=== PATIENT | male | born 1985 | race African-American/Black ===

== ENCOUNTER 2022-08-12 22:16 | Emergency (ER) | payer MEDICARE, MEDICAID ==
[~2022-08-12] VITALS: Ht 182.9 cm; Wt 100.0 kg
[2022-08-12 22:20] VITALS: BP 181/105
[2022-08-13] MEDS ORDERED: ACET-2708 MT (00:43)
== END 2022-08-13 03:00 | disposition home or self-care (01) ==
LOC: ER 22:33
DX: M79.672 Pain in left foot (principal); M79.671 Pain in right foot; I10 Essential (primary) hypertension
CPT/HCPCS: 99283

== ENCOUNTER 2024-05-18 21:25 | Emergency (ER) | payer MEDICARE, OTHER ==
[~2024-05-18] VITALS: Ht 182.9 cm; Wt 95.0 kg
[~2024-05-18 21:25] MED LIST: ACET-2708 MT
[2024-05-18 21:32] VITALS: BP 153/79; PULSE 83; RESP 16; TEMP 98.2; O2SAT 98
[2024-05-19 01:40] LABS: BASOPHILS % 0.5 % (0.0-2.0); EOSINOPHILS % 4.5 % (0.0-5.0); HEMATOCRIT. 36.4 % (42.0-52.0); LYMPHOCYTES % 28.3 % (20.0-50.0); MEAN CORPUSCULAR HEMOGLOBIN 29.5 pg (28.0-32.0); MEAN CORPUSCULAR VOLUME 89.4 fL (80.0-94.0); MEAN PLATELET VOLUME 7.1 fl (7.4-10.4); NEUTROPHILS % 58.7 % (40.0-76.0); PLATELET 350 x1000/uL (130-400); RED BLOOD CELL COUNT 4.07 mill/uL (4.7-6.1); RED CELL DISTRIBUTION WIDTH 14.1 % (11.6-14.6); WHITE BLOOD COUNT 5.7 x1000/uL (4.5-11.0)
[2024-05-19 01:42] LABS: CHLORIDE 105 mEq/L (98-107); POTASSIUM 3.8 mEq/L (3.5-5.1); SODIUM 139 mEq/L (136-145)
[2024-05-19 01:43] LABS: CARBON DIOXIDE 29 mEq/L (21-32)
[2024-05-19 01:48] LABS: CREATININE 1.3 mg/dL (0.6-1.3); GLUCOSE 100 mg/dL (70-105); UREA NITROGEN BLOOD 21 mg/dL (9-23)
[2024-05-19 01:50] LABS: ACETAMINOPHEN < 2 ug/mL (10-30)
[2024-05-19 01:53] LABS: ETHANOL BLOOD < 10 mg/dL (<10)
== END 2024-05-19 08:53 | disposition home or self-care (01) ==
LOC: ER 21:25
DX: R45.851 Suicidal ideations (principal); I10 Essential (primary) hypertension; E11.9 Type 2 diabetes mellitus without complications; Z86.59 Personal history of other mental and behavioral disorders
CPT/HCPCS: 36415; 80048; 80307; 80320; 80329; 85025; 99285; G0480